=== PATIENT | female | born 1965 | race Caucasian/White ===

== ENCOUNTER → 2018-10-10 | Outpatient (CLI) | payer MEDICARE, OTHER ==
[2015-08-01 07:45] VITALS: BP 132/84
[~2018-10-10] MED LIST: ALPR2TAB2 PO; BUPR150T11 PO; DULO30CA2 PO; GABA-585 PO; LISI1TAB7 PO; METF500T16 PO
--- NOTE | 2018-10-11 11:58 | SLEEP ---
DATE OF STUDY: 10/10/2018 ATTENDING PHYSICIAN: Dr. Xiao Hill. REFERRING PHYSICIAN: Dr. Barcenas. The patient is 53 years old who weighs 230 pounds with a BMI of 45. The patient's [place] score was 9. The patient underwent sleep study performed at [facility] to rule out CHRISTOPHER. During the night study, the patient spent 438 minutes in bed and slept for 398 minutes with a sleep efficiency of 91%. Sleep latency was 25 minutes with absent REM sleep. Overall, sleep architecture showed increased stage 1 and stage 2 sleep, absent N3 and absent REM sleep. During the night study, the patient had 1 obstructive apnea, no mixed or central apneas and 13 hypopneas. The patient's apnea-hypopnea index for the entire night was only 2 per hour, supine index 2 per hour. REM sleep was not seen. EKG monitoring revealed average heart rate of 93 beats per minute, no sustained arrhythmias were observed. Occasional PACs seen. PLMS were seen at index of 61 per hour and 6 per hour caused EEG arousals. Nocturnal oximetry study revealed an average oxygen saturation of 92% with the lowest of 85%. 24% of time oxygen saturation remained between 80% and 89%. There was a sustained pattern of nocturnal hypoxia suggesting hypoventilation. Due to low AHI, the patient did not meet the split night criteria for CPAP initiation. IMPRESSION: 1. No clinically significant sleep disorder breathing. The patient's AHI for the entire night was 2 per hour. 2. Mild sustained nocturnal hypoxia suggesting hypoventilation. 3. Severe PLMS. RECOMMENDATIONS: 1. The patient did not meet the split night criteria for CPAP initiation. 2. Weight loss is advised. 3. Avoid ALMOND ROASTER depressants. 4. The patient may benefit from 0.5-1 liter of oxygen at nighttime. 5. The patient should also be further evaluated for symptoms of restless legs during the day and if present, it can be treated with dopaminergic agonist agents. ANDRES VÁZQUEZ MD DR: SOTO/birgit JOB#: [id number] / [id number] XAIO Gómez MD, SABATO MD
== END | disposition home or self-care (01) ==
LOC: SLPLAB 18:31
PROVIDERS: ATTEND Internal Medicine Pulmonary Disease
DX: G47.34 Idiopathic sleep related nonobstructive alveolar hypoventilation (principal); G47.61 Periodic limb movement disorder
CPT/HCPCS: 95810